=== PATIENT | male | born 1955 | race African-American/Black ===

== ENCOUNTER → 2017-06-23 | Outpatient (CLI) | payer OTHER ==
--- NOTE | 2017-06-24 09:41 | RADIOLOGY REPORT (SQ) ---
EXAM DESCRIPTION: MRI LT LOWER JOINT WITHOUT COMPLETED DATE/TIME: 06/23/2017 7:35 pm REASON FOR STUDY: BILATERAL PRIMARY OSTEOARTHRITIS OF KNEE M17.0 BILATERAL PRIMARY OSTEOARTHRITIS O F KNEE COMPARISON: None. TECHNIQUE: Leftknee images acquired and stored on PACS. Multiplanar images include fat sensitive se quences as T1, water sensitive sequences as FST2 or STIR, cartilage sensitive sequences as FSPD, and gradient echo sequences. LIMITATIONS: None. FINDINGS: JOINT AND BURSAE: Relatively small joint effusion. No loose bodies detected. BONE CORTEX AND MARROW: No alteration of signal to suggest marrow replacement. No worrisome bone lesi ons. No occult fracture. ACL: Mild signal throughout but no evidence of overt disruption, major fiber bundles are intact. Lik juan manuel degenerative change. PCL: Intact. MCL: Intact. LCL: Intact. MEDIAL MENISCUS: No tears. No abnormal signal. LATERAL MENISCUS: No tears. No abnormal signal. MEDIAL COMPARTMENT: Mild chondral thinning without focal defects or reactive bone changes. LATERAL COMPARTMENT: Mild chondral thinning without focal defects or reactive bone changes. PATELLA: Normal patellar location. Fairly extensive medial facet chondral loss with small subchondra l cysts. EXTENSOR MECHANISM: Quadriceps tendon relatively intact. Pronounced tendinosis in the proximal justin lar tendon. SOFT TISSUES: Adjacent muscles and subcutaneous tissues normal. Normal flow void in popliteal artery and vein. OTHER: No other significant finding. IMPRESSION: Left knee MRI demonstrates: 1. Chondromalacia patella. 2. Proximal patellar tendinosis. 3. Other findings to include mild savanah nt effusion and chondral thinning without focal loss in the medial and lateral compartments. No cruc iate or collateral ligament disruption or meniscus tear evident. TECHNICAL DOCUMENTATION: JOB ID: [id number] [employer]- All Rights Reserved
--- NOTE | 2017-06-24 14:29 | RADIOLOGY REPORT (SQ) ---
EXAM DESCRIPTION: MRI RT LOWER JOINT WITHOUT COMPLETED DATE/TIME: 06/23/2017 7:35 pm REASON FOR STUDY: BILATERAL PRIMARY OSTEOARTHRITIS OF KNEE M17.0 BILATERAL PRIMARY OSTEOARTHRITIS O F KNEE COMPARISON: 2015. TECHNIQUE: Rightknee images acquired and stored on PACS. Multiplanar images include fat sensitive s equences as T1, water sensitive sequences as FST2 or STIR, cartilage sensitive sequences as FSPD, and gradient echo sequences. LIMITATIONS: None. FINDINGS: JOINT AND BURSAE: No effusion. BONE CORTEX AND MARROW: No alteration of signal to suggest marrow replacement. No worrisome bone lesi ons. No occult fracture. ACL: Intact. PCL: Intact. MCL: Intact. LCL: Intact. Along the fibular collateral ligament, there is a small probable ganglion or cyst measu ring approximately 1 cm. MEDIAL MENISCUS: No tears. No abnormal signal. LATERAL MENISCUS: No tears. No abnormal signal. MEDIAL COMPARTMENT: Mild chondral thinning without focal lesions or reactive bone changes. LATERAL COMPARTMENT: Mild chondral thinning. This may be more focal in the weight-bearing tibia. No reactive bone cysts or osteophytes, however. PATELLA: Diffuse chondral thinning. Mildly limiting motion artifact on the axial view. No large sub chondral cysts or bulky osteophytes. EXTENSOR MECHANISM: Intact. Quadriceps and patella tendons normal. SOFT TISSUES: Adjacent muscles and subcutaneous tissues normal. Normal flow void in popliteal artery and vein. OTHER: No other significant finding. IMPRESSION: 1. Mild chondral loss. 2. No overt cruciate or collateral ligament abnormality. No men iscus tear. TECHNICAL DOCUMENTATION: JOB ID: [id number] [employer]- All Rights Reserved
== END ==
LOC: RAD 18:22
PROVIDERS: ATTEND Physician Assistant
DX: M17.0 Bilateral primary osteoarthritis of knee (principal)